=== PATIENT | female | born 1955 | race African-American/Black ===

== ENCOUNTER 2017-11-11 14:10 | Emergency (ER) | payer SELFPAY ==
--- NOTE | 2017-11-11 14:50 | RAD ---
PORTABLE CHEST: Date: 11/11/17 HISTORY: Chest pain. FINDINGS: No comparison. There is mild cardiomegaly and mild vascular congestion. Mild interstitial prominence could represent early edema. No confluent alveolar process. Tiny effusions are not excluded. IMPRESSION: Cardiomegaly and mild vascular congestion. POS: [facility]
[2017-11-11 15:01] LABS: #Basophils 0.1 thou/uL (0.0-0.2); #Eosinphils 0.7 thou/uL (0.0-0.7); #Lymphocytes 2.9 thou/uL (1.20-3.40); #Monocytes 0.8 thou/uL (0.11-0.59); #Neutrophils 3.2 thou/uL (1.40-6.50); %Eosinophils 8.6 % (0.0-10.0); %Lymphocytes 37.5 % (21.0-51.0); Hematocrit 38.2 % (36.0-47.0); Red Blood Cell (RBC) Count 4.22 mill/uL (4.20-5.40); White Blood Cell (WBC) Count 7.6 thou/uL (4.8-10.8)
[2017-11-11 15:25] LABS: ALT (SGPT) 16 U/L (8-55); AST (SGOT) 27 U/L (5-34); Alkaline Phosphatase 80 U/L (40-150); Anion Gap 13 mmol/L (10-20); BUN (Urea Nitrogen) 7 mg/dL (9.8-20.1); Bilirubin, Total 0.5 mg/dL (0.2-1.2); CK (CPK) 281 U/L (29-168); Calc. Creatinine Clearance 0 mL/min (70-130); Calcium 10.1 mg/dL (7.8-10.44); Carbon Dioxide 24 mmol/L (23-31); Chloride 104 mmol/L (98-107); Estimated GFR-MDRD 56; Globulin 4.2 g/dL (2.4-3.5); Protein, Total 8.5 g/dL (6.0-8.3)
[2017-11-11 15:30] LABS: Troponin I Less than 0.010 ng/mL (< 0.028)
--- NOTE | 2017-11-11 15:33 | RAD ---
3 VIEWS LEFT ELBOW: Date: 11/11/17 INDICATION: Pain. FINDINGS: No fracture, dislocation, or joint capsular distention. IMPRESSION: No acute osseous abnormality of left elbow. POS: [facility]
[2017-11-11 16:34] LABS: Bilirubin Negative (Negative); Blood, Urine Negative (Negative); Glucose, Urine (Dipstick) Negative (Negative); Ketone, Urine Negative (Negative); Nitrite Negative (Negative); Protein, Urine (Dipstick) Negative (Neg-Trace); Urobilinogen 0.2 mg/dL (0.2-1.0)
== END 2017-11-11 19:16 | disposition home or self-care (01) ==
LOC: ERS 14:10
DX: M25.522 Pain in left elbow (principal); R07.9 Chest pain, unspecified; I10 Essential (primary) hypertension
CPT/HCPCS: 71010; 80053; 81003; 82550; 82553; 84484; 85025; 93005